=== PATIENT | female | born 1960 | race African-American/Black ===

== ENCOUNTER 2020-01-29 21:31 | Emergency (ER) | payer SELFPAY ==
[~2020-01-29] VITALS: Ht 170.2 cm; Wt 72.0 kg
[~2020-01-29 21:31] MED LIST: CIPR500T94 PO
[2020-01-29 21:40] VITALS: BP 149/77
--- NOTE | 2020-01-29 22:07 | PHYS DOC ---
Past Medical History Past Medical History: Anemia (CHAVO SZYMANSKI APRN) Past Surgical History: Other Additional Past Surgical Histo: ectopic (CHAVO SZYMANSKI APRN) Smoking Status: Current Every Day Smoker Alcohol Use: Occasionally Drug Use: None (CHAVO SZYMANSKI APRN) General Adult EDM: Chief Complaint: HAND PROBLEM HPI: HPI: Patient is a 59 year old female who presents to the ED today complaining of 9 out of 10 sharp intermittent right dorsal hand pain that began 2 weeks ago after she tripped on concrete and fell bracing herself with the right hand. Denies any loss of consciousness. Reports the pain is worse on using the right hand. States she has been taking Aleve with no relief. (CHAVO SZYMANSKI APRN) Review of Systems: Review of Systems: Constitutional: Denies fever or chills. [] Musculoskeletal: Reports right hand pain. Denies back pain Integument: Denies rash. [] Neurologic: Denies headache, focal weakness or sensory changes. [] Psychiatric: Denies depression or anxiety. [] (CHAVO SZYMANSKI APRN) Heart Score: Risk Factors: Risk Factors: DM, Current or recent (<one month) smoker, HTN, HLP, family history of CAD, obesity. Risk Scores: Score 0 - 3: 2.5% MACE over next 6 weeks - Discharge Home Score 4 - 6: 20.3% MACE over next 6 weeks - Admit for Clinical Observation Score 7 - 10: 72.7% MACE over next 6 weeks - Early Invasive Strategies (CHAVO SZYMANSKI APRN) Allergies: Allergies: Allergies Coded Allergies Type Severity Reaction Last Updated Verified No Known Drug Allergies 08/28/14 No (CHAVO SZYMANSKI APRN) Physical Exam: PE: Constitutional: Well developed, well nourished, no acute distress, non-toxic appearance. [] Skin: Warm, dry, no erythema, no rash. [] Back: No tenderness, no CVA tenderness. [] Extremities: Right hand with no obvious deformity, no edema, no ecchymosis. Tenderness diffusely on the dorsal aspect of the hand. Full range of motion to the right hand and fingers. Adequate radial, medial, ulnar sensation to the right hand. +2 right radial pulse. Cap refill less than 2 seconds to right fingers. Neurologic: Alert and oriented X 3, normal motor function, normal sensory function, no focal deficits noted. [] Psychologic: Affect normal, judgement normal, mood normal. [] (CHAVO SZYMANSKI APRN) Current Patient Data: Vital Signs: Vital Signs Date Time Temp Pulse Resp B/P (MAP) Pulse Ox O2 Delivery O2 Flow Rate FiO2 01/29/20 21:40 98.1 79 16 149/77 (101) Room Air 98.1 (CHAVO SZYMANSKI APRN) EKG: EKG: [] (CHAVO SZYMANSKI APRN) Radiology/Procedures: Radiology/Procedures: []PROCEDURE: HAND RIGHT 3V RIGHT HAND, VIEWS 3 Indication: Reason: pain / Spl. Instructions: / History: Findings: There is no acute fracture or dislocation. Probable old fracture deformity of the mid third metacarpal. Question old fracture deformity at the second PIP joint. There is PIP and DIP joint space narrowing. There is no bony erosion. Mineralization is normal. There is no radiographically apparent soft tissue swelling or radiopaque foreign body. IMPRESSION: No acute fracture. Electronically signed by: Adam Nevarez MD (01/29/2020 10:08 PM) [facility] DICTATED and SIGNED BY: ADAM NEVAREZ MD DATE: 01/29/20 [id number] 0 (CHAVO SZYMANSKI APRN) Course & Med Decision Making: Course & Med Decision Making Pertinent Labs and Imaging studies reviewed. (See chart for details) This is a 59-year-old female patient presenting to the ED today with right hand pain that began 2 weeks ago after she fell. Right hand x-rays interpreted by radiologist are negative for any acute findings, discharged with Medrol Dosepak, diclofenac's and gabapentin. Follow-up with orthopedic doctor in a week. Ice elevation encouraged. (CHAVO SZYMANSKI APRN) Dragon Disclaimer: Dragon Disclaimer: This electronic medical record was generated, in whole or in part, using a voice recognition dictation system. (CHAVO SZYMANSKI APRN) Departure Departure Impression: Primary Impression: Sprain of right hand Qualified Codes: S63.91XA - Sprain of unspecified part of right wrist and hand, initial encounter Additional Impression: Fall Qualified Codes: W19.XXXA - Unspecified fall, initial encounter Disposition: 01 DC HOME SELF CARE/HOMELESS Condition: STABLE Referrals: NO PCP (PCP) VANIA MOORE MD follow up in one week Patient Instructions: Joint Sprain Additional Instructions: You were evaluated in the emergency room for right hand pain, your right hand x- rays are negative for any acute findings. Take the prescribed medications as ordered. Call the provided orthopedic doctor in follow-up in the course of this week or next week. Come back to the ED at any point symptoms worsen Scripts Methylprednisolone (MEDROL) 4 Mg Tab.ds.pk 1 PKG PO UD, #1 PKG Prov: CHAVO SZYMANSKI APRN 01/29/20 Gabapentin (GABAPENTIN ) 300 Mg Capsule 300 MG PO TID for NEUROGENIC PAIN, #30 CAP Prov: CHAVO SZYMANSKI APRN 01/29/20 Diclofenac Potassium (DICLOFENAC POTASSIUM) 50 Mg Tablet 1 TAB PO BID, #20 TAB 0 Refills Prov: CHAVO SZYMANSKI APRN 01/29/20 Attending Signature Attending Signature I have reviewed the PA/[employer] SERVICE WORKER's note and plan of care. I was available for consultation as needed during the patient's visit in the emergency department. I agree with the clinical impression, plan, and disposition. (JA ABDULLAHI DO) CHAVO SZYMANSKI APRN Jan 29, 2020 22:07 JA ABDULLAHI DO Jan 30, 2020 01:02
--- NOTE | 2020-01-29 22:11 | RAD ---
RIGHT HAND, VIEWS 3 Indication: Reason: pain / Spl. Instructions: / History: Findings: There is no acute fracture or dislocation. Probable old fracture deformity of the mid third metacarpal. Question old fracture deformity at the second PIP joint. There is PIP and DIP joint space narrowing. There is no bony erosion. Mineralization is normal. There is no radiographically apparent soft tissue swelling or radiopaque foreign body. IMPRESSION: No acute fracture. Electronically signed by: Adam Nevarez MD (01/29/2020 10:08 PM) [facility]
[2020-01-29] MEDS ORDERED: DICL50TA2 PO (22:22)
[2020-01-29] MEDS ORDERED: METH4TAB2 PO (22:22)
[2020-01-29] MEDS ORDERED: GABA300C18 PO (22:22)
== END 2020-01-29 22:54 | disposition home or self-care (01) ==
LOC: ER 21:31
DX: S63.91XA Sprain of unspecified part of right wrist and hand, initial encounter (principal); W01.0XXA Fall on same level from slipping, tripping and stumbling without subsequent striking against object, initial encounter; F17.200 Nicotine dependence, unspecified, uncomplicated; Y93.89 Activity, other specified; Y92.89 Other specified places as the place of occurrence of the external cause; Y99.8 Other external cause status
CPT/HCPCS: 73130; 99283